=== PATIENT | female | born 1945 | race Caucasian/White ===

== ENCOUNTER 2016-08-28 17:50 | Inpatient (IN) ==
[2016-08-28] MEDS ORDERED: D5% in Water 1,000 ML IVC PRN (21:14)
[2016-08-28] MEDS ORDERED: Naloxone 0.4 MG/ML INJ IVP PRN (21:14)
[2016-08-28] MEDS ORDERED: *HR* Dextrose 50 % in Water (Syg) 50 ML SYRINGE IVP PRN (21:14)
[2016-08-28] MEDS ORDERED: Acetaminophen 325 MG TABLET PO PRN (21:14)
[2016-08-28] MEDS ORDERED: Dextrose Gel 15 GM PO PRN ×2 (21:14)
[2016-08-28] MEDS ORDERED: 0.9 % Sodium Chloride 1,000 ML IVC SCH (21:15)
[2016-08-28] MEDS ORDERED: *HR* Heparin 5,000 UNIT/ML VIAL SQ SCH (22:00)
--- NOTE | 2016-08-28 22:07 | Internal Med History&Physical ---
<Katharina Dash - Last Filed: 08/28/16 23:25> Date of Encounter: 08/28/16 Time of Encounter: 21:49 Assessment and Plan (1) Severe sepsis Current visit: Yes Status: Acute possible etiology recent hospitalization, UTI tachycardia Pulse 122 RR >20 with suspected end organ damage, acute encephalopathy and Cr 2.62, without previously recorded comparison suspected UTI start empiric abx LA 2.3, slight elevation will repeat IVF (2) GABRIELA (acute kidney injury) Current visit: Yes Status: Acute Cr 2.62, without previous comparison IVF (3) Acute encephalopathy Current visit: Yes Status: Acute etiology:infectious with end organ involvement, dehydration head CT - EKG sinus tachycardia 94% O2 saturation UA:trace LE, WBC, bacteria Na 132, K 5.8 osm:279 Ca 8.3 glucose 153 TSH .779 check ammonia UDS (4) UTI (urinary tract infection) Current visit: Yes Status: Suspected suspected UA;+LE, bacteria and WBC urine ctx start abx Qualifiers: Urinary tract infection type: acute cystitis Hematuria presence: without hematuria Qualified Code(s): N30.00 - Acute cystitis without hematuria (5) Hypocalcemia Current visit: Yes Status: Acute 8.3, will supplement and rechck (6) Elevated troponin I level Current visit: No Status: Acute .21 will trend (7) Hyperkalemia Current visit: No Status: Acute given kayexylate will recheck (8) Diabetes Current visit: Yes Status: Acute sliding scale diabetic diet Qualifiers: Diabetes mellitus type: other specified (including CAMMY) Diabetes mellitus complication status: with neurologic complications Diabetes mellitus complication detail: with autonomic neuropathy Diabetes mellitus termite control servicer insulin use: unspecified half-way insulin use status Qualified Code(s): E13.43 - 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 (9) HTN (hypertension) Current visit: Yes Status: Acute bp 117/72 continue home meds Qualifiers: Hypertension type: essential hypertension Qualified Code(s): I10 - Essential (primary) hypertension (10) Depression Current visit: Yes Status: Acute Qualifiers: Depression Type: unspecified Qualified Code(s): F32.9 - Major depressive disorder, single episode, unspecified (11) Syncope Current visit: Yes Status: Acute found down at home for uncertain amount of time possibly polypharmacy, vs cardiac vs infectious cause hold home percocet and klonipin ECHO EKGtachy NSR Qualifiers: Syncope type: unspecified Qualified Code(s): R55 - Syncope and collapse Internal Medicine - H&P: HPI Chief complaint: AMS Admitted From: Home Plans for Post Hospital Care: Home History of present illness: Ms. Monson is a 71 year old female with c/o altered mental status and altered breathing early this morning after she woke up. PMHx HTN, HLD,depression, TIA, DM, chronic back pain. pt in room with niece at bedside. Pt states she had some trouble breathing and does not remember much from this morning. Niece states that pt was confused and disoriented this morning with some depressed breathing. SHe was found down on ground, unwitnessed fall or trauma to head. At that time daughter called EMS. Pt received narcan became awake and alert with improved respiration. When niece arrived at ER, pt seemed awake and alert but was not at her normal baseline mental status. Niece states pt has been more depressed lately due to daughter's cancer diagnosis and has some on and off confusion with some noticeable weightloss since July. Niece states she was recently in hospital in [place] for similar episode in July but unsure which hospital or what was done at that time. pt was evaluated at [facility]. NSR tachycardia on EKG, elevated troponin of .21. Pt denies headache, change in vision or hearing, chest pain, hemoptysis, SOB, wheeze, abd pain, N/V/D/C, dysuria other urinary changes,numbness/tingling. Past Med Surg Social Fam HX - Past Medical History Medical history: diabetes, hyperlipidemia, hypertension, TIA Psychiatric history: anxiety, depression - Social History Smoking Status: Never smoker Smokeless Tobacco Status: No Alcohol use: none Drug use: none Occupational status: retired Current living situation: Home, With Family - Family History Daughter Race: Living Status: Still Living Hx Family Cancer: Yes - Additional Family History Additional family history: pt has one daughter who from cancer, second daughter recently also diagnosed with cancer Internal Medicine - H&P: Meds Albuterol Sulfate [Albuterol Inhaler] 2 puff IH Q6H 08/28/16 [History] ClonazePAM [Klonopin] 1 mg PO BID 08/28/16 [History] GlipiZIDE [Glipizide Xl] 5 mg PO DAILY 08/28/16 [History] Lisinopril-HCTZ 10-12.5 [Prinzide 10-12.5] 2 each PO DAILY 08/28/16 [History] Metformin HCl [Metformin HCl ER] 2,000 mg PO HS 08/28/16 [History] Metoprolol Succinate 100 mg PO DAILY 08/28/16 [History] Omeprazole [PriLOSEC] 40 mg PO DAILY 08/28/16 [History] OxyCODONE/APAP 5/325 [Percocet 5/325 MG] 1 each PO Q4HR PRN 08/28/16 [History] Potassium Chloride [K-Tab ER] 40 meq PO BID 08/28/16 [History] Simvastatin [Zocor] 40 mg PO HS 08/28/16 [History] Allergies guaifenesin [From Mucinex] Allergy (Verified 10/05/15 18:49) Difficulty Breathing gabapentin [From Neurontin] Adverse Reaction (Verified 10/05/15 18:49) See Comments pregabalin [From Lyrica] Adverse Reaction (Verified 10/05/15 18:49) See Comments promethazine [From Phenergan] Adverse Reaction (Verified 10/05/15 18:49) Vomiting All Systems PM: A 10-system review of systems was performed and is negative for pertinent findings except as documented above in the HPI. - Constitutional Constitutional: falls, weight loss, no chills, no fatigue, no weakness - EENT Eyes: no change in vision, no discharge, no pain, no photophobia Ears: decreased hearing Nose, mouth and throat: no dysphagia, no nasal discharge, no neck pain, no sore throat - Cardiovascular Cardiovascular ROS IM: no chest pain, no diaphoresis, no dyspnea, no lightheadedness, no palpitations, no syncope - Respiratory Respiratory: no cough, no dyspnea, no wheezing, no excessive phlegm production - Gastrointestinal Gastrointestinal: no abdominal pain, no diarrhea, no hematemesis, no hematochezia, no melena, no nausea, no vomiting - Genitourinary Genitourinary: no change in urinary stream, no dysuria, no flank pain, no hematuria - Musculoskeletal Musculoskeletal ROS IM: no numbness, no tingling - Integumentary Integumentary IM: no rash, no unusual bruising - Neurological Neurological ROS: confusion, frequent falls, memory loss, no abnormal hearing, no abnormal speech, no headache(s), no loss of vision, no numbness, no tingling - Psychiatric Psychiatric: confusion, depression - Constitutional Vitals: Temp Pulse BP Pulse Ox 99.3 F 116 117/72 94 L 08/28/16 19:59 08/28/16 19:59 08/28/16 19:59 08/28/16 19:59 General appearance: Present: disheveled, A&O X 2, no acute distress - Head Head exam: Present: atraumatic, normocephalic - Eye Eye exam: Present: PERRL, conjuntiva pink, sclera anicteric Pupils: Present: PERRL - Neck Neck exam general surgery: Present: supple, trachea midline. Absent: lymphadenopathy - Respiratory Respiratory exam: Present: CTAB. Absent: accessory muscle use, rales, rhonchi, wheezes - Cardiovascular Cardiovascular exam: Present: RRR, +S1, +S2. Absent: diastolic murmur, gallop, rubs, systolic murmur - GI/Abdominal GI/Abdominal exam: Present: normal bowel sounds, soft, no peritoneal signs. Absent: distended, tenderness - Extremities Exam Extremities exam: Present: warm, radial pulses palpable and symetrical. Absent : calf tenderness, cyanotic, pedal edema - Neurological Exam Neurological exam: Present: CN II-XII intact, oriented X3, no focal deficits, strengths equal and symetr throughout. Absent: pronater drift, facial droop, speech deficit - Expanded Neurological Exam Neurological exam expanded: Present: inattentive, memory loss-recent event Cranial Nerves: EOM's intact PM: Normal, nystagmus PM: Normal, tongue deviation PM: Normal Sensory exam: lower extremity light touch: Normal, lower extremity pin prick: Normal, upper extremity light touch: Normal, upper extremity pin prick: Normal Coma Scale Eye Opening: Spontaneous Coma Scale Motor Response: Obeys Commands Coma Scale Verbal Response: Oriented Coma Scale Total: 15 - Skin Skin exam: Present: dry, intact, normal color. Absent: cyanosis, diaphoretic Internal Med - H&P Results - Labs CBC & Chem 7: 08/28/16 22:12 <Buster Pemberton - Last Filed: 08/29/16 05:12> Date of Encounter: 08/28/16 Internal Medicine - H&P: HPI History of present illness: Ms. Monson is a 71 year old female All Systems PM: A 10-system review of systems was performed and is negative for pertinent findings except as documented above in the HPI. - Constitutional Vitals: Temp Pulse Resp BP Pulse Ox 99 F 114 16 121/65 97 08/29/16 00:30 08/29/16 00:30 08/29/16 00:30 08/29/16 00:30 08/29/16 00:30 Internal Med - H&P Results - Labs CBC & Chem 7: 08/29/16 01:03 08/29/16 01:03 Labs: Short CBC 08/29/16 Range/Units 01:03 WBC 9.0 (4.3-11.1) K/mcL Hgb 12.1 (11.5-15.4) g/dL Hct 36.7 (35.3-44.9) % Plt Count 201 (140-400) K/mcL BMP 08/28/16 08/29/16 22:12 01:03 Sodium 133 L 134 L Potassium 5.6 H 4.9 H Chloride 99 99 Carbon Dioxide 23 27 BUN 18 18 Creatinine 2.18 H 2.10 H Glucose 130 H 136 H Calcium 8.1 L 8.0 L Cardiac Enzymes 08/28/16 08/29/16 Range/Units 22:12 01:03 Troponin I 0.37 H* 0.50 H* (0-0.03) ng/mL Liver Function 08/29/16 Range/Units 01:03 Total Bilirubin 0.5 (0.2-1.2) mg/dL AST 13 (5-34) Units/L ALT 7 (0-55) Units/L Alkaline Phosphatase 57 (38-126) Units/L Albumin 3.3 L (3.5-5.0) g/dL - Attending Attestation I examined this patient and my medical decision-making was reviewed with the PHYSICAL SCIENCES INSTRUCTOR/PA/Advanced Practice Nurse/Resident Physician. I agree with the documented findings, disposition and treatment plan as described except to the extent set forth below. Agree with Dr. Dash. Syncope and evaluation. Etiology unclear. Mild troponin elevation, uptrending. Will start heparin drip and consult cardiology Abnormal urinalysis, chest x-ray suspicious for atelectasis versus pneumonitis. Continue with IV antibiotics. Follow cultures. Unclear if acute kidney injury or chronic kidney disease. Obtain a renal sonogram. Avoid nephrotoxic agents. Lactic acid trending down. Potassium improved after Kayexalate.
[2016-08-28 23:19] LABS: Calcium 8.1 mg/dL (8.6-10.8)
[2016-08-28 23:20] LABS: Potassium 5.6 mEq/L (3.5-4.5)
[2016-08-28 23:21] LABS: Hemoglobin A1C 5.1 %
[2016-08-29] MEDS ORDERED: 0.9 % Sodium Chloride 1,000 ML IVC SCH (00:10)
[2016-08-29] MEDS: Insulin LISPRO 300 UNITS/3 ML VIAL SQ SCH ×6 (00:25→22:59)
[2016-08-29] MEDS ORDERED: Levofloxacin 500 MG/100 ML 500 MG/100 ML BAG IVPB SCH (01:00)
[2016-08-29 01:21] LABS: Hematocrit 36.7 % (35.3-44.9); Hemoglobin 12.1 g/dL (11.5-15.4); Mean Corpuscular Hemoglobin 28.3 pg (28.0-33.3); Mean Corpuscular Volume 85.7 fL (83.0-100.0); Mean Platelet Volume 10.9 fL (9.4-12.4); Platelet Count 201 K/mcL (140-400); Red Blood Count 4.28 M/mcL (3.82-4.97); Red Cell Distribution Width 13.8 % (11.5-14.5)
[2016-08-29 01:31] LABS: INR 1.2; Prothrombin Time 13.2 Seconds (9.4-12.1)
[2016-08-29 01:33] LABS: Activated Partial Thrombo Time 29.1 Seconds (26.0-36.0)
[2016-08-29 01:37] LABS: Albumin 3.3 g/dL (3.5-5.0); Albumin/Globulin Ratio 1.3 (1.1-2.2); Bilirubin,Total 0.5 mg/dL (0.2-1.2); Globulin 2.6 g/dL (2.4-3.5); Magnesium 1.3 mg/dL (1.6-2.6); Potassium 4.9 mEq/L (3.5-4.5); Total Protein 5.9 g/dL (6.0-8.3)
[2016-08-29] MEDS ORDERED: Aspirin 325 MG TABLET PO ONE (02:05)
[2016-08-29] MEDS ORDERED: *HR* Morphine 2 MG/ML SYRINGE IVP PRN (02:06)
[2016-08-29] MEDS ORDERED: Nitroglycerin 0.4 MG TAB.SUBL SL PRN (02:06)
[2016-08-29] MEDS ORDERED: Magnesium Sulfate 1 GM in D5% in Water 100 ML IVPB ONE (02:09)
[2016-08-29] MEDS ORDERED: Calcium Chloride 1,000 MG in 0.9 % Sodium Chloride 100 ML IVPB ONE (02:11)
[2016-08-29] MEDS ORDERED: Magnesium Sulfate 2 GM in D5% in Water 100 ML IVPB ONE ×2 (05:04→09:00)
[2016-08-29] MEDS ORDERED: *HR* Heparin 5,000 UNIT/ML VIAL IVP PRN ×2 (05:12)
[2016-08-29] MEDS ORDERED: *HR* Heparin 5,000 UNIT/ML VIAL IVP ONE (05:12)
[2016-08-29] MEDS ORDERED: Heparin 25,000 UNIT/500 ML D5W 25,000 UNIT/500 ML MLS IVC SCH (05:15)
[2016-08-29] MEDS ORDERED: Piperacillin/Tazobactam 3.375 GM in D5% in Water (Mini-Bag+) 100 ML IVPB SCH (06:00)
[2016-08-29] MEDS: Magnesium Oxide 400 MG TABLET PO SCH ×2 (08:38→20:42)
--- NOTE | 2016-08-29 10:45 | ECHO - Doppler Report ---
Echocardiogram Name: Sydney Monson Date of Study: 08/29/2016 Date: 1945 Ht: 61.0 in Medical Record#: [id number] Age: 71 Wt: 169.0 lb Gender: Female BSA: 1.76 Order #: [id number] Location: [facility] Room #: 2A22 Reading Physician: Paul Ordonez MD, [facility] Slide Forming Machine Operator: Mellissa Srinivasan RDCS, RVT Ordering Physician: Gilbert Keen MD Primary Physician: Katharina Dash DO Indications: Elevated Troponins Impressions: Normal LV systolic function, LVEF 70-75%. Mild left ventricular diastolic dysfunction. Mildly dilated right ventricle. There is hypokinesis of the mid-apical right ventricle. No significant valvular dysfunction. No evidence of pulmonary hypertension. Primary hospitalist has been paged to discuss the abnormal results. Left Ventricular Wall Motion: Rest Echo Findings All wall segments showed normal motion. Findings: Study Quality * Technically adequate exam. ECG Findings * Sinus tachycardia. Left Ventricle * Normal LV systolic function, LVEF 70-75%. * Normal LV chamber size and wall thickness. * Mild left ventricular diastolic dysfunction. Right Ventricle * Mildly dilated right ventricle. There is hypokinesis of the mid-apical right ventricle. Left Atrium * Normal left atrial size. Right Atrium * Normal right atrial size. Aorta * Normally sized aortic root. Pericardium * There is a trivial pericardial effusion present. IVC * Normal IVC dimensions and inspiratory collapse. Aortic Valve * Trileaflet aortic valve. * No aortic stenosis. * No aortic regurgitation. Mitral Valve * Normal mitral valve structure. * No mitral stenosis. * Trace mitral regurgitation. Tricuspid Valve * Normal tricuspid valve structure. * No tricuspid stenosis. * Trace tricuspid regurgitation. * No evidence of pulmonary hypertension. Pulmonic Valve * Normal pulmonic valve structure. * No pulmonic stenosis. * Trace pulmonic regurgitation. History Hypertension Diabetes Hypercholesteremia Family History of CAD Measurements: BP: 135/ 78 2D Normal Values RVIDd: 4.70 cm IVSd: .80 cm 0.6 - 1.0 cm LVIDd: 4.70 cm 3.7 - 5.6 cm LVPWd: .80 cm 0.6 - 1.1 cm LVIDs: 2.90 cm 1.5 - 3.6 cm AO: 3.30 cm < 4.0 cm %FS: 38.30 cm >25 % LA volume: 56 Mitral Valve Peak E:.52 m/sec Peak A:.98 m/sec E/A Ratio:0.5 Tricuspid Valve TV Regurg Peak Grad: 24.00mmHg TV Regurg Peak Saad: 2.43m/sec Updated by Paul Ordonez MD, [facility] on 08/29/2016 10:38:27 AM electronically signed on 08/29/2016 10:38:53 AM with status of Final Wall Motion Leon: 1=Normal, 2=Hypokinesis, 3=Akinesis, 4=Dyskinesis, 5=Aneurysmal, 6=Hyperkinetic, X=Not Visualized (Blank)=Missing
[2016-08-29] MEDS ORDERED: Albuterol 2.5 MG/3 ML NEBULIZER IH PRN (10:46)
--- NOTE | 2016-08-29 10:50 | Cardiology Consult Note ---
<Carol Ann Alvarez - Last Filed: 08/29/16 11:40> Date of Encounter: 08/28/16 Time of Encounter: 10:30 Assessment and Plan (1) Syncope Current Visit: Yes Status: Acute Per cardiology: -Syncope at home with unknown down time. Per reports was found by family and EMS called. Patient responded to narcan. Urine positive for opiates and benzodiazepines. Narcotics may have contributed to syncope. -Patient states this has happened 3 times over the past several months. She denies prior work up for syncope, however per review of records family reported recent hospital admission for syncope in [place]. -Patient tachycardia on admission. -Unclear etiology for syncope. -ECG with sinus tachycardia. -Telemetry reviewed with no significant events noted. -No cartid bruit appreciated. -Can consider holter monitor at discharge to rule out cardiac arrhythmias as cause for syncope. -Will check orthostatic BPs. -Can consider neurology consult. -Can consider carotid duplex if deemed clinically warranted. Qualifiers: Syncope type: unspecified Qualified Code(s): R55 - Syncope and collapse (2) UTI (urinary tract infection) Current Visit: Yes Status: Suspected Per cardiology: -Suspected UTI. -Positive WBC and leukocyte esterase. -Urine culture pending. -On ATB. -Management per primary service. Qualifiers: Urinary tract infection type: acute cystitis Hematuria presence: without hematuria Qualified Code(s): N30.00 - Acute cystitis without hematuria (3) Severe sepsis Current Visit: Yes Status: Acute Per cardiology: -Meets sepsis criteria with tachycardia, and tachypnea. -On ATB. -Urine culture pending. Suspected UTI. -Had recent hospitalization in [place]. -Management per primary service. (4) GABRIELA (acute kidney injury) Current Visit: Yes Status: Acute Per cardiology: -Creatinine this admission 2.62. -Previous records reviewed with creatiine 0.8 in May 2013. Of note patient did have creatiine of 4.51 January of 2008. -May be contributing to elevated troponins. -Management per primary service. -Can consider nephrology consult. (5) Elevated troponin I level Current Visit: No Status: Acute Per cardiology: -ELevated troponins in the setting of UTI, sepsis, and GABRIELA. -Troponins 0.21, 0.37, and 0.5. -Echocardiogram pending. -Denies history of CAD. -Denies chest pain, heaviness, or tightness. -ECG with sinus tacchycardia, HR 121 with t wave inversions V3, V4, and V5. Repeat ECG ordered per primary service. -Currently on heparin drip. -Will repeat troponin. -Will add asa, beta wei, and statin. Of note, was just started on home beta wei dose per primary service. -Further recommendations pending repeat troponin, ECG, and echo. -Will continue to monitor. (6) Hyperkalemia Current Visit: No Status: Acute Per cardiology: -K at [place] 5.8 in the setting of GABRIELA. -Was given kayexelate. -K 08/29 4.9. -Management per primary service, (7) Hypomagnesemia Current Visit: Yes Status: Acute Per cardiology: -Mg 1.3. -Replaced per primary service. -Management per primary service. Discussion w patient/family: The assessment and plan as outlined above was discussed with the patient who expressed understanding and agreement. All questions were answered. Thank you for involving us in the care of your patient. Please call with any questions. Discussed and reviewed with . History of Present Illness Consult date: 08/29/16 Requesting physician: Buster Pemberton Consult reason: elevated troponin, syncope, hyperkalemia Chief complaint: syncope History of present illness: Ms. Monson is a 71 year old female with a relevant past medical history of DM, hyperlipidemia, HTN, TIA, anxiety, and depression. Patient states she was at home when she passed out and fell. Per records it appears that she was unresponsive and EMS was called. She was given narcan and became more arrousable. Patient was taken to [place] ER and subsequently transferred to [place]. Patient is somewhat of a poor historian. Patient states over the past several months she has "passes out" 3 times. Patient states she has not been evaluated for this until now. Patient reports increased shortness of breath recently and increased fatigue. Patient denies chest pain, chest heaviness, or tightness. Patient denies previous cardiac history. Patient states she has never had a cardiac catheterization before. Patient states she does not ever remember being told she has kidney issues. Cardiology was consulted for elevated troponin. (LUIS FELIPE) Past Med Surg Social Fam HX - Past Medical History Attestation: Yes The following information was validated with the patient. Source: patient, old records reviewed Medical history: diabetes, hyperlipidemia, hypertension, TIA Psychiatric history: anxiety, depression - Social History Smoking Status: Never smoker Smokeless Tobacco Status: No Alcohol use: none Drug use: none - Family History Daughter Race: Living Status: Still Living Hx Family Cancer: Yes Medications and Allergies Albuterol Sulfate [Albuterol Inhaler] 2 puff IH Q6H 08/28/16 [History] ClonazePAM [Klonopin] 1 mg PO BID 08/28/16 [History] GlipiZIDE [Glipizide Xl] 5 mg PO DAILY 08/28/16 [History] Metformin HCl [Metformin HCl ER] 2,000 mg PO HS 08/28/16 [History] Metoprolol Succinate 100 mg PO DAILY 08/28/16 [History] Omeprazole [PriLOSEC] 40 mg PO DAILY 08/28/16 [History] OxyCODONE/APAP 5/325 [Percocet 5/325 MG] 1 each PO Q4HR PRN 08/28/16 [History] Potassium Chloride [K-Tab ER] 40 meq PO BID 08/28/16 [History] Simvastatin [Zocor] 40 mg PO HS 08/28/16 [History] Duloxetine HCl [Cymbalta] 60 mg PO DAILY 08/29/16 [History] Lisinopril/Hydrochlorothiazide [Zestoretic 20-25 mg Tablet] 1 each PO DAILY [History] Allergies guaifenesin [From Mucinex] Allergy (Verified 10/05/15 18:49) Difficulty Breathing gabapentin [From Neurontin] Adverse Reaction (Verified 10/05/15 18:49) See Comments pregabalin [From Lyrica] Adverse Reaction (Verified 10/05/15 18:49) See Comments promethazine [From Phenergan] Adverse Reaction (Verified 10/05/15 18:49) Vomiting All Systems Review: A 10-system review of systems was performed and is negative for pertinent findings except as documented above in the HPI. - Constitutional Constitutional: fatigue - Cardiovascular Cardiovascular: as per HPI, dyspnea on exertion, syncope Physical Examination Vital Signs, Last 4 Hours Temp Pulse Resp BP Pulse Ox 08/29/16 07:23 98.2 F 106 18 135/78 95 General: Conversant, No Apparent Distress HEENT: Atraumatic, Normocephaly, Mucus Membranes Moist Neck: No JVD, Normal carotid pulses Cardiac: Reg Rate and Rhythm, Normal S1 and S2, No Murmur Lungs: Normal Breath Sounds, No Wheeze, Rales, Rhonchi Neuro: Alert and responsive, No focal deficits noted Abdomen: Soft, Non-Tender Skin: No rashes noted on visualized skin Musculoskeletal: No Chest Wall Tenderness Extremities: No Clubbing, No Cyanosis, No Edema, Normal Pulses Results 08/29/16 01:03 08/29/16 01:03 Lab Results Impressions Retroperitoneum Ultrasound 08/29/16 09:00 IMPRESSION: No hydronephrosis. Incidental note of increased echogenicity of the liver. D/ / Roz Baldwin MD / Roz Baldwin MD Interpreting Provider: Roz Baldwin MD Active Medications Acetaminophen (Tylenol) 650 mg PO Q6HR PRN PRN Reason: Mild Pain (1-3) Stop: 02/27/17 21:15 Albuterol Sulfate (Proventil Neb) 2.5 mg IH [id number] PRN; Protocol PRN Reason: Shortness Of Breath/Wheezing Stop: 02/28/17 10:47 Dextrose/Water (Dextrose 50% (Syg)) 25 ml IVP AD PRN PRN Reason: Hypoglycemia Stop: 02/27/17 21:15 Glucagon (Glucagen) 1 mg IM ONCE PRN PRN Reason: Hypoglycemia Stop: 02/27/17 21:15 Glucose (Gluctose) 15 gm PO ONCE PRN PRN Reason: Hypoglycemia Stop: 02/27/17 21:15 Glucose (Gluctose) 30 gm PO ONCE PRN PRN Reason: Hypoglycemia Stop: 02/27/17 21:15 Heparin Sodium (Porcine) (Heparin) 4,000 unit IVP Q6HR PRN PRN Reason: SEE COMMENTS Stop: 02/28/17 05:13 Heparin Sodium (Porcine) (Heparin) 2,000 unit IVP Q6H PRN PRN Reason: SEE COMMENTS Stop: 02/28/17 05:13 Dextrose (Dextrose 5%) 1,000 mls @ 100 mls/hr IVC .Q10H PRN PRN Reason: HYPOGLYCEMIA Stop: 02/27/17 21:15 Sodium Chloride (0.9 % Sodium Chloride) 1,000 mls @ 150 mls/hr IVC .Q6H40M HAYDEN Stop: 02/28/17 00:10 Last Admin: 08/29/16 00:41 Dose: 150 mls/hr Heparin Sodium/Dextrose (Heparin 25,000 Unit/500 Ml D5w) 25,000 unit in 500 mls @ 18.408 mls/hr IVC .Q24H HAYDEN; 12 UNIT/KG/HR PRN Reason: Protocol Stop: 02/28/17 05:16 Last Admin: 08/29/16 06:33 Dose: 12 unit/kg/hr, 18.408 mls/hr Ceftriaxone Sodium 2,000 mg/ (Dextrose) 100 mls @ 200 mls/hr IVPB Q24H [facility] Stop: 02/28/17 16:01 Insulin Human Lispro (Humalog) 0 units SQ TIDAC [facility] PRN Reason: Protocol Stop: 02/28/17 11:31 Insulin Human Lispro (Humalog) 0 units SQ HS [facility] PRN Reason: Protocol Stop: 02/28/17 21:01 Magnesium Oxide (Mag-Ox) 400 mg PO BID [facility] PRN Reason: Protocol Stop: 02/28/17 09:01 Last Admin: 08/29/16 08:38 Dose: 400 mg Morphine Sulfate (Morphine Sulfate) 1 mg IVP Q6HR PRN PRN Reason: Chest Pain Stop: 02/28/17 02:07 Naloxone HCl (Narcan) 0.4 mg IVP Q2MIN PRN PRN Reason: Opioid Reversal Stop: 02/27/17 21:15 Nitroglycerin (Nitroglycerin) 0.4 mg SL Q5MIN PRN PRN Reason: Chest Pain Stop: 02/28/17 02:07 Omeprazole (Prilosec) 40 mg PO DAILY@0730 [facility] PRN Reason: Protocol Stop: 03/01/17 07:31 Laboratory Tests 08/28/16 16:10 Urine Opiates Screen Positive H Ur Oxycodone Screen Positive H U Benzodiazepines Scrn Positive H Laboratory Tests 08/28/16 08/28/16 08/28/16 15:38 15:38 22:12 Hgb Potassium 5.8 H 5.6 H Creatinine 2.62 H 2.18 H Magnesium Troponin I 0.21 H* 08/28/16 08/29/16 08/29/16 22:12 01:03 01:03 Hgb 12.1 Potassium Creatinine Magnesium Troponin I 0.37 H* 0.50 H* 08/29/16 01:03 Hgb Potassium 4.9 H Creatinine 2.10 H Magnesium 1.3 L Troponin I - Imaging and Cardiology Chest Xray: report reviewed Echo: pending Other Results: CT head report reviewed - EKG Interpretation EKG results cardiology: personally reviewed (ECG with sinus tachycardia. HR 121 , T wave inversion in leads V3, V4, and V5.), other (Telemetry reviewed with average HR 114, sinus tachycardia. Rare PVCs noted.) Consult Discharge Plan - Plan Referrals: Gilbert Keen [Primary Care Provider] - 09/08/16 1:20 pm (please follow up as schedule...) <Gabrielle Pozo - Last Filed: 08/29/16 14:21> Date of Encounter: 08/28/16 Assessment and Plan Discussion w patient/family: The assessment and plan as outlined above was discussed with the patient and/or family members who expressed understanding and agreement. All questions were answered. Thank you for involving us in the care of your patient. Please call with any questions. History of Present Illness History of present illness: Ms. Monson is a 71 year old female All Systems Review: A 10-system review of systems was performed and is negative for pertinent findings except as documented above in the HPI. Physical Examination Vital Signs, Last 4 Hours Temp Pulse Resp BP Pulse Ox 08/29/16 11:38 98.0 F 97 16 143/69 89 Results 08/29/16 01:03 08/29/16 01:03 Lab Results 08/28/16 08/28/16 08/29/16 22:12 22:12 01:03 WBC Hgb Hct Plt Count INR APTT Sodium 133 L Potassium 5.6 H Chloride 99 Carbon Dioxide 23 BUN 18 Creatinine 2.18 H Glucose 130 H Calcium 8.1 L Magnesium Total Bilirubin AST ALT Alkaline Phosphatase Troponin I 0.37 H* 0.50 H* 08/29/16 08/29/16 08/29/16 01:03 01:03 01:03 WBC 9.0 Hgb 12.1 Hct 36.7 Plt Count 201 INR 1.2 APTT 29.1 Sodium 134 L Potassium 4.9 H Chloride 99 Carbon Dioxide 27 BUN 18 Creatinine 2.10 H Glucose 136 H Calcium 8.0 L Magnesium 1.3 L Total Bilirubin 0.5 AST 13 ALT 7 Alkaline Phosphatase 57 Troponin I 08/29/16 08/29/16 08/29/16 10:21 12:08 13:21 WBC Hgb Hct Plt Count INR APTT 65.5 H D Sodium Potassium Chloride Carbon Dioxide BUN Creatinine Glucose Calcium Magnesium Total Bilirubin AST ALT Alkaline Phosphatase Troponin I 0.41 H* 0.43 H* - Attending Attestation I examined this patient and my medical decision-making was reviewed with the THEATRICAL DRESSER/PA/Advanced Practice Nurse/Resident Physician. I agree with the documented findings, disposition and treatment plan. Ms. Monson was found down at home and after EMS arrived she revived with narcan. She admits to some confusion at home and does take pain medications. She also does not hydrate well, drinking mainly diet pepsi. I suspect she became possibly dehydrated, developed a UTI and became confused. On top of this , she may have taken more pain medication than she remembers. Nevertheless, she denies having chest pain. There are no concerning telemetry findings. There are no acute ECG findings although there are nonspecific ST abnormalities that are different when compared to prior ECG in 2013 which is not diagnostic. The echo demonstrated preserved LVEF. She does have mild RV dilation and mid RV hypokinesis on echo which is of unclear significance. She is requiring oxygen and has sinus tachycardia. I agree with venous scan of lower extremities. She is otherwise in no acute distress. Would recommend against an invasive evaluation given renal dysfunction and no clear indication of an acute coronary syndrome. No further testing from a cardiac standpoint. Aspirin, BB and statin were restarted. We will sign off. Please call with questions.
[2016-08-29] MEDS: Metoprolol XL (24 HR) Succ 50 MG TAB.ER.24H PO SCH (11:55)
[2016-08-29] MEDS: 0.9 % Sodium Chloride 1,000 ML IVC SCH ×2 (11:55→22:57)
--- NOTE | 2016-08-29 16:13 | Internal Med Progress Note ---
Date of Encounter: 08/29/16 Time of Encounter: 16:11 - Assessment and plan (1) Syncope Current Visit: Yes Status: Acute Assessment and plan: unclear etiology. in the setting of syncope with elevated trop, isolated Rv dilatation and hypokinesis on the ECHO, will need to r/o PE> V/Q shows low prob, patinet is tachycardic and is requiring 2 l of NC, however does not have chest pain or sob. atthis time, will follow venous doppler of b/l lower legs if no DVT, will stop the heparin drip. may also be 2/2 polypharmacy / opioid overdose as she was brought back with narcan as per [facility] chart. cardio was consulted, as per cardio ,the trop elevation 2/2 GABRIELA and RV changes of unclear significance at this time and will not do any further invasive testing. BP stable, EKG with no ischemic changes. Qualifiers: Syncope type: unspecified Qualified Code(s): R55 - Syncope and collapse (2) Elevated troponin I level Current Visit: No Status: Acute Assessment and plan: in the setting of GABRIELA and possible UTI. No ischemic changes on the EKG. Will rule out PE (3) UTI (urinary tract infection) Current Visit: Yes Status: Suspected Assessment and plan: Has no leukocytosis or fever. Hemodynamically stable. Does not complain of urinary symptoms at this time. We will follow urine cultures and de-escalate antibiotics. Qualifiers: Urinary tract infection type: acute cystitis Hematuria presence: without hematuria Qualified Code(s): N30.00 - Acute cystitis without hematuria (4) Diabetes Current Visit: Yes Status: Acute Qualifiers: Diabetes mellitus type: other specified (including CAMMY) Diabetes mellitus complication status: with neurologic complications Diabetes mellitus complication detail: with autonomic neuropathy Diabetes mellitus group home insulin use: unspecified remote computer terminal operator insulin use status Qualified Code(s): E13.43 - 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 (5) HTN (hypertension) Current Visit: Yes Status: Acute Qualifiers: Hypertension type: essential hypertension Qualified Code(s): I10 - Essential (primary) hypertension (6) GABRIELA (acute kidney injury) Current Visit: Yes Status: Acute Assessment and plan: mild imporvement in renal fxn. she is not aware of CKD in the past. will order renal US. I/O charting. - Time Spent With Patient 25 - 35 minutes - Subjective Interval history: ramakrishna seen at the bedside, she denies any chest pain, sob, dizziness, cough, leg swelling or pain. as per the chart, she presented with syncope however she says she fell and did not pass out. has h/o recurrent falls/ - Constitutional Vitals: Temp Pulse Resp BP Pulse Ox 98.0 F 97 16 143/69 89 08/29/16 11:38 08/29/16 11:38 08/29/16 11:38 08/29/16 11:38 08/29/16 11:38 General appearance: Present: disheveled, A&O X 2, no acute distress Exam: neck- supple chest- b/l clear, no added sounds CVS-s1 and s2, regular , tachycardic, abd-soft, non tender, bs are present ext- no calf tenderness, no edema Internal Medicine: Result - Labs CBC & Chem 7: 08/29/16 01:03 08/29/16 01:03 Labs: Short CBC 08/29/16 Range/Units 01:03 WBC 9.0 (4.3-11.1) K/mcL Hgb 12.1 (11.5-15.4) g/dL Hct 36.7 (35.3-44.9) % Plt Count 201 (140-400) K/mcL BMP 08/28/16 08/29/16 22:12 01:03 Sodium 133 L 134 L Potassium 5.6 H 4.9 H Chloride 99 99 Carbon Dioxide 23 27 BUN 18 18 Creatinine 2.18 H 2.10 H Glucose 130 H 136 H Calcium 8.1 L 8.0 L Cardiac Enzymes 08/28/16 08/29/16 08/29/16 Range/Units 22:12 01:03 10:21 Troponin I 0.37 H* 0.50 H* 0.41 H* (0-0.03) ng/mL 08/29/16 Range/Units 12:08 Troponin I 0.43 H* (0-0.03) ng/mL Liver Function 08/29/16 Range/Units 01:03 Total Bilirubin 0.5 (0.2-1.2) mg/dL AST 13 (5-34) Units/L ALT 7 (0-55) Units/L Alkaline Phosphatase 57 (38-126) Units/L Albumin 3.3 L (3.5-5.0) g/dL - ABG Interpretation ABG results: PT/INR, D-dimer PT 13.2 Seconds (9.4-12.1) H 08/29/16 01:03 - Impressions Impressions Retroperitoneum Ultrasound 08/29/16 09:00 IMPRESSION: No hydronephrosis. Incidental note of increased echogenicity of the liver. D/ / Roz Baldwin MD / Roz Baldwin MD Interpreting Provider: Roz Baldwin MD Pulmonary Perfusion Imaging 08/29/16 11:11 IMPRESSION: Low probability for pulmonary embolus. D/ / 08/29/2016 13:04:09 Dio Meyer MD / marija Interpreting Provider: Dio Meyer MD Consult Discharge Plan - Plan Referrals: Gilbert Keen [Primary Care Provider] - 09/08/16 1:20 pm (please follow up as schedule...)
[2016-08-30] MEDS: Magnesium Oxide 400 MG TABLET PO SCH ×2 (07:54→21:11)
[2016-08-30] MEDS: Insulin LISPRO 300 UNITS/3 ML VIAL SQ SCH ×4 (07:54→21:14)
[2016-08-30] MEDS: Aspirin 81 MG TAB.CHEW PO SCH (07:54)
[2016-08-30] MEDS: Metoprolol XL (24 HR) Succ 50 MG TAB.ER.24H PO SCH (07:54)
[2016-08-30] MEDS ORDERED: Levofloxacin 500 MG/100 ML 500 MG/100 ML BAG IVPB SCH (09:00)
[2016-08-30 09:42] LABS: Basophils % 0.3 %; Eosinophils # 0.1 K/mcL (0.0-0.6); Eosinophils % 2.2 %; Hematocrit 34.2 % (35.3-44.9); Hemoglobin 11.1 g/dL (11.5-15.4); Immature Granulocytes % 0.3 % (0-4); Lymphocytes # 1.1 K/mcL (0.6-4.6); Mean Corpuscular HGB Conc 32.5 g/dL (31.6-35.5); Mean Corpuscular Hemoglobin 27.7 pg (28.0-33.3); Mean Corpuscular Volume 85.3 fL (83.0-100.0); Mean Platelet Volume 10.8 fL (9.4-12.4); Monocytes # 0.4 K/mcL (0.0-1.3); Monocytes % 6.1 %; Neutrophils # 4.2 K/mcL (1.6-8.9); Platelet Count 175 K/mcL (140-400); Red Blood Count 4.01 M/mcL (3.82-4.97); Red Cell Distribution Width 13.7 % (11.5-14.5); Segmented Neutrophils % 72.1 %
[2016-08-30 09:52] LABS: Calcium 8.8 mg/dL (8.6-10.8); Potassium 4.3 mEq/L (3.5-4.5)
--- NOTE | 2016-08-30 11:53 | Internal Med Progress Note ---
Date of Encounter: 08/30/16 Time of Encounter: 11:49 - Assessment and plan (1) Syncope Current Visit: Yes Status: Acute Assessment and plan: unclear etiology. in the setting of syncope with elevated trop, isolated Rv dilatation and hypokinesis on the ECHO, was worked up for PE. V/Q shows low prob, b/l doppler is negative for DVT, does not have chest pain or sob. have stopped the heparin drip, less likely PE. may be 2/2 polypharmacy / opioid overdose as she was brought back with narcan as per [facility] chart. cardio was consulted, as per cardio ,the trop elevation 2/2 GABRIELA and RV changes of unclear significance at this time and will not do any further invasive testing. BP stable, EKG with no ischemic changes. will consult PT/OT for any rehab needs, Qualifiers: Syncope type: unspecified Qualified Code(s): R55 - Syncope and collapse (2) Elevated troponin I level Current Visit: No Status: Acute Assessment and plan: in the setting of GABRIELA . No ischemic changes on the EKG. ruled out PE (3) UTI (urinary tract infection) Current Visit: Yes Status: Suspected Assessment and plan: Has no leukocytosis or fever. Hemodynamically stable. Does not complain of urinary symptoms at this time. urine cx done at [place] growing klebsiella and proteus and both is sensitive to ceftriaxone. will continue ceftriaxone for now, will dc on levoflox. Qualifiers: Urinary tract infection type: acute cystitis Hematuria presence: without hematuria Qualified Code(s): N30.00 - Acute cystitis without hematuria (4) Diabetes Current Visit: Yes Status: Acute Qualifiers: Diabetes mellitus type: other specified (including CAMMY) Diabetes mellitus complication status: with neurologic complications Diabetes mellitus complication detail: with autonomic neuropathy Diabetes mellitus terminal clerk insulin use: unspecified terminal clerk insulin use status Qualified Code(s): E13.43 - 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 (5) HTN (hypertension) Current Visit: Yes Status: Acute Assessment and plan: lisinopril - HCTZ was held due to worsening GABRIELA. will start amlodipine as BP is elevated. Qualifiers: Hypertension type: essential hypertension Qualified Code(s): I10 - Essential (primary) hypertension (6) GABRIELA (acute kidney injury) Current Visit: Yes Status: Acute Assessment and plan: imporvement in renal fxn today she is not aware of CKD in the past. renal US does not show any hydronephrosis. I/O charting. - Time Spent With Patient 25 - 35 minutes - Subjective Interval history: ramakrishna seen at the bedside, she denies any chest pain, sob, dizziness, cough, leg swelling or pain. as per the chart, she presented with syncope. seh was worked up for possible PE, V/Q shows low probability , b/l LE dopplers is negative for DVT. has h/o recurrent falls, consulted PT/OT today - Constitutional Vitals: Temp Pulse Resp BP Pulse Ox 98.2 F 69 18 189/82 93 08/30/16 11:21 08/30/16 11:21 08/30/16 11:21 08/30/16 11:21 08/30/16 11:21 General appearance: Present: disheveled, A&O X 2, no acute distress Exam: neck- supple chest- b/l clear, no added sounds CVS-s1 and s2, regular , no m/r/g abd-soft, non tender, bs are present ext- no calf tenderness, no edema Internal Medicine: Result - Labs CBC & Chem 7: 08/30/16 09:05 08/30/16 09:05 Labs: Short CBC 08/30/16 Range/Units 09:05 WBC 5.9 (4.3-11.1) K/mcL Hgb 11.1 L (11.5-15.4) g/dL Hct 34.2 L (35.3-44.9) % Plt Count 175 (140-400) K/mcL Neutrophils # 4.2 (1.6-8.9) K/mcL BMP 08/30/16 09:05 Sodium 132 L Potassium 4.3 Chloride 100 Carbon Dioxide 25 BUN 11 Creatinine 1.34 H Glucose 176 H Calcium 8.8 Cardiac Enzymes 08/29/16 Range/Units 12:08 Troponin I 0.43 H* (0-0.03) ng/mL - ABG Interpretation ABG results: PT/INR, D-dimer PT 13.2 Seconds (9.4-12.1) H 08/29/16 01:03 - Impressions Impressions Pulmonary Perfusion Imaging 08/29/16 11:11 IMPRESSION: Low probability for pulmonary embolus. D/ / 08/29/2016 13:04:09 Dio Meyer MD / marija Interpreting Provider: Dio Meyer MD Consult Discharge Plan - Plan Referrals: Gilbert Keen [Primary Care Provider] - 09/08/16 1:20 pm (please follow up as schedule...)
[2016-08-30] MEDS: amLODIPine 5 MG TABLET PO SCH (11:55)
[2016-08-31] MEDS: Insulin LISPRO 300 UNITS/3 ML VIAL SQ SCH ×4 (07:15→22:03)
[2016-08-31] MEDS: Magnesium Oxide 400 MG TABLET PO SCH ×2 (07:41→20:15)
[2016-08-31] MEDS: amLODIPine 5 MG TABLET PO SCH (07:41)
[2016-08-31] MEDS: Aspirin 81 MG TAB.CHEW PO SCH (07:42)
[2016-08-31] MEDS: Metoprolol XL (24 HR) Succ 50 MG TAB.ER.24H PO SCH (07:42)
[2016-08-31 08:41] LABS: Basophils % 0.4 %; Eosinophils % 0.9 %; Immature Granulocytes % 0.4 % (0-4); Lymphocytes % 18.3 %; Mean Corpuscular HGB Conc 34.3 g/dL (31.6-35.5); Mean Corpuscular Hemoglobin 28.1 pg (28.0-33.3); Mean Platelet Volume 10.5 fL (9.4-12.4); Monocytes % 7.8 %; Platelet Count 198 K/mcL (140-400); Red Blood Count 4.27 M/mcL (3.82-4.97); Red Cell Distribution Width 13.6 % (11.5-14.5); Segmented Neutrophils % 72.2 %
[2016-08-31 08:42] LABS: Eosinophils # 0.1 K/mcL (0.0-0.6); Monocytes # 0.4 K/mcL (0.0-1.3); Neutrophils # 4.1 K/mcL (1.6-8.9)
[2016-08-31 08:55] LABS: BUN/Creatinine Ratio 9 (6-26); Blood Urea Nitrogen 8 mg/dL (7-20); Carbon Dioxide 25 mEq/L (19-29); Chloride 98 mEq/L (98-109); Glucose 197 mg/dL (70-99); Osmolality,Calculated 288 (280-300); Potassium 3.6 mEq/L (3.5-4.5); Sodium 137 mEq/L (136-145); eGFR For African Americans > 60 (> 60); eGFR For Non-African Americans > 60 (> 60)
--- NOTE | 2016-08-31 11:38 | Internal Med Progress Note ---
Date of Encounter: 08/31/16 Time of Encounter: 11:36 - Assessment and plan (1) Syncope Current Visit: Yes Status: Acute Assessment and plan: unclear etiology. in the setting of syncope with elevated trop, isolated Rv dilatation and hypokinesis on the ECHO, was worked up for PE. V/Q shows low prob, b/l doppler is negative for DVT, does not have chest pain or sob. have stopped the heparin drip, less likely PE. may be 2/2 polypharmacy / opioid overdose as she was brought back with narcan as per [facility] chart. cardio was consulted, as per cardio ,the trop elevation 2/2 GABRIELA and RV changes of unclear significance at this time and will not do any further invasive testing. BP stable, EKG with no ischemic changes. will consult PT/OT for any rehab needs, await recommendations Qualifiers: Syncope type: unspecified Qualified Code(s): R55 - Syncope and collapse (2) Elevated troponin I level Current Visit: No Status: Acute Assessment and plan: in the setting of GABRIELA . No ischemic changes on the EKG. ruled out PE (3) UTI (urinary tract infection) Current Visit: Yes Status: Suspected Assessment and plan: Has no leukocytosis or fever. Hemodynamically stable. Does not complain of urinary symptoms at this time. urine cx done at [place] growing klebsiella and proteus and both is sensitive to ceftriaxone. will continue ceftriaxone for now, will dc on levoflox. Qualifiers: Urinary tract infection type: acute cystitis Hematuria presence: without hematuria Qualified Code(s): N30.00 - Acute cystitis without hematuria (4) Diabetes Current Visit: Yes Status: Acute Qualifiers: Diabetes mellitus type: other specified (including CAMMY) Diabetes mellitus complication status: with neurologic complications Diabetes mellitus complication detail: with autonomic neuropathy Diabetes mellitus rn long term care insulin use: unspecified assisted insulin use status Qualified Code(s): E13.43 - 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 (5) HTN (hypertension) Current Visit: Yes Status: Acute Assessment and plan: lisinopril - HCTZ was held due to worsening GABRIELA. amlodipine started yesterday, BP still elevated. patito start losartan. Qualifiers: Hypertension type: essential hypertension Qualified Code(s): I10 - Essential (primary) hypertension (6) GABRIELA (acute kidney injury) Current Visit: Yes Status: Acute Assessment and plan: imporvement in renal fxn today she is not aware of CKD in the past. renal US does not show any hydronephrosis. - Time Spent With Patient 25 - 35 minutes - Subjective Interval history: ramakrishna seen at the bedside, she denies any chest pain, sob, dizziness, cough, leg swelling or pain. as per the chart, she presented with syncope. seh was worked up for possible PE, V/Q shows low probability , b/l LE dopplers is negative for DVT. has h/o recurrent falls, daughter at home requesting HH, await PT/OT recommendations. - Constitutional Vitals: Temp Pulse Resp BP Pulse Ox 98.2 F 71 13 175/79 93 08/31/16 11:18 08/31/16 11:18 08/31/16 11:18 08/31/16 11:18 08/31/16 11:18 General appearance: Present: disheveled, A&O X 2, no acute distress Exam: neck- supple chest- b/l clear, no added sounds CVS-s1 and s2, regular , no m/r/g abd-soft, non tender, bs are present ext- no calf tenderness, no edema Internal Medicine: Result - Labs CBC & Chem 7: 08/31/16 08:30 08/31/16 08:30 Labs: Short CBC 08/31/16 Range/Units 08:30 WBC 5.7 (4.3-11.1) K/mcL Hgb 12.0 (11.5-15.4) g/dL Hct 35.0 L (35.3-44.9) % Plt Count 198 (140-400) K/mcL Neutrophils # 4.1 (1.6-8.9) K/mcL BMP 08/31/16 08:30 Sodium 137 Potassium 3.6 Chloride 98 Carbon Dioxide 25 BUN 8 Creatinine 0.91 Glucose 197 H Calcium 10.0 - ABG Interpretation ABG results: PT/INR, D-dimer PT 13.2 Seconds (9.4-12.1) H 08/29/16 01:03 Consult Discharge Plan - Plan Referrals: Gilbert Keen [Primary Care Provider] - 09/08/16 1:20 pm (please follow up as schedule...)
[2016-09-01] MEDS: Insulin LISPRO 300 UNITS/3 ML VIAL SQ SCH ×2 (09:15→11:54)
[2016-09-01] MEDS: Aspirin 81 MG TAB.CHEW PO SCH (09:23)
[2016-09-01] MEDS: amLODIPine 5 MG TABLET PO SCH (09:23)
[2016-09-01] MEDS: Metoprolol XL (24 HR) Succ 50 MG TAB.ER.24H PO SCH (09:23)
[2016-09-01] MEDS: Magnesium Oxide 400 MG TABLET PO SCH (09:23)
[2016-09-01] MEDS ORDERED: *HR* OxyCODONE/APAP 5/325 TABLET PO PRN (11:07)
[2016-09-01 11:19] VITALS: BP 169/77
--- NOTE | 2016-09-01 12:57 | Venous Imaging Report ---
LE Venous Duplex Patient Name:MICHEAL RUIZ Order Number:[id number] Procedure Date:08/29/2016 Date:6Age:71 yrs Gender:Female Location:[facility] Room #: [id number] Ramp Supervisor:Bridget Alan Referring MD:Benedicto Becker MD six pack packer:Gilbert Keen MD Reading MD:Suman Elizabeth MD , FACS Primary Indications:r/o DVT Secondary Indications: Impressions: Bilateral lower extremity: normal superficial and deep exam. Findings Prior Study: No prior study available for comparison. Lower Extremity Venous Duplex Side Vein Compress Spontaneous Flow Augment Diameter (cm) Depth (cm) Right Lesser Saphenous Normal Yes Phasic Yes Left Distal Iliac Normal Yes Phasic Yes Left Common Femoral Normal Yes Phasic Yes Left Superficial Femoral Normal Yes Phasic Yes Left Popliteal Normal Yes Phasic Yes Left Posterior Tibial Normal Yes Phasic Yes Left Peroneal Normal Yes Phasic Yes Left Saphenofemoral Junction Normal Yes Phasic Yes Left Great Saphenous Normal Yes Phasic Yes Left Lesser Saphenous Normal Yes Phasic Yes Right Distal Iliac Normal Yes Phasic Yes Right Common Femoral Normal Yes Phasic Yes Right Superficial Femoral Normal Yes Phasic Yes Right Popliteal Normal Yes Phasic Yes Right Posterior Tibial Normal Yes Phasic Yes Right Peroneal Normal Yes Phasic Yes Right Saphenofemoral Junction Normal Yes Phasic Yes Right Great Saphenous Normal Yes Phasic Yes Updated by Suman Elizabeth MD, FACS on 09/01/2016 12:52:18 PM Suman Elizabeth MD electronically signed on 09/01/2016 12:53:19 PM with status of Final
--- NOTE | 2016-09-01 13:14 | Discharge Summary ---
Date of Encounter: 09/01/16 Time of Encounter: 13:12 - Discharge Diagnosis (1) Syncope Priority: Primary Status: Acute Qualifiers: Syncope type: unspecified Qualified Code(s): R55 - Syncope and collapse (2) Elevated troponin I level Priority: Secondary Status: Acute (3) UTI (urinary tract infection) Priority: Primary Status: Suspected Qualifiers: Urinary tract infection type: acute cystitis Hematuria presence: without hematuria Qualified Code(s): N30.00 - Acute cystitis without hematuria (4) Diabetes Priority: Secondary Status: Acute Qualifiers: Diabetes mellitus type: other specified (including CAMMY) Diabetes mellitus complication status: with neurologic complications Diabetes mellitus complication detail: with autonomic neuropathy Diabetes mellitus jail insulin use: unspecified terminal manager insulin use status Qualified Code(s): E13.43 - 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 (5) HTN (hypertension) Priority: Secondary Status: Acute Qualifiers: Hypertension type: essential hypertension Qualified Code(s): I10 - Essential (primary) hypertension (6) GABRIELA (acute kidney injury) Priority: Secondary Status: Acute - Discharge Medications Prescriptions: Amlodipine [Norvasc] 10 mg PO DAILY #60 tablet Losartan [Cozaar] 50 mg PO DAILY #60 tablet Home Medications: Albuterol Sulfate [Albuterol Inhaler] 2 puff IH Q6H 08/28/16 [History] ClonazePAM [Klonopin] 1 mg PO BID 08/28/16 [History] GlipiZIDE [Glipizide Xl] 5 mg PO DAILY 08/28/16 [History] Metformin HCl [Metformin HCl ER] 2,000 mg PO HS 08/28/16 [History] Metoprolol Succinate 100 mg PO DAILY 08/28/16 [History] Omeprazole [PriLOSEC] 40 mg PO DAILY 08/28/16 [History] OxyCODONE/APAP 5/325 [Percocet 5/325 MG] 1 each PO Q4HR PRN 08/28/16 [History] Potassium Chloride [K-Tab ER] 40 meq PO BID 08/28/16 [History] Simvastatin [Zocor] 40 mg PO HS 08/28/16 [History] Duloxetine HCl [Cymbalta] 60 mg PO DAILY 08/29/16 [History] Amlodipine [Norvasc] 10 mg PO DAILY #60 tablet 09/01/16 [Rx] Losartan [Cozaar] 50 mg PO DAILY #60 tablet 09/01/16 [Rx] Allergies/Adverse Reactions: Allergies guaifenesin [From Mucinex] Allergy (Verified 10/05/15 18:49) Difficulty Breathing gabapentin [From Neurontin] Adverse Reaction (Verified 10/05/15 18:49) See Comments pregabalin [From Lyrica] Adverse Reaction (Verified 10/05/15 18:49) See Comments promethazine [From Phenergan] Adverse Reaction (Verified 10/05/15 18:49) Vomiting Date of admission: 08/29/16 06:09 Primary care physician: Gilbert Keen Consults: 08/28/16 21:33 Consult to Nutrition [CONS] Routine Comment: Consulting Provider: NUTRITION Reason for Dietary Consult: Other Other:: approx 20 lbs wt loss Consult to Pastoral Services [CONS] Routine Comment: Consult to Winding Inspector [CONS] Routine Reason for SW Consult: lives at home with 50 yr old daughter assists with her care/care for each other. Daughter has cancer recieves home health. 08/29/16 07:00 Consult to Cardiology [CONS] Routine Comment: Consulting Provider: Cardiology Ade Reason for Consult: Elevated trops, syncope, hyperkalemia Call Completed: No 08/30/16 07:38 Consult to Physical Therapy [CONS] Routine Comment: Evaluate, develop and implement POC 08/30/16 07:39 Consult to Occupational Therapy [CONS] Routine Comment: Evaluate, develop and implement POC Discharging clinician: Ingrid Becker Anticipated date of discharge: 09/01/16 - Patient Status Disposition: Home Health Service Condition: Fair Functional capacity at discharge: independent ambulation Overall status at discharge: patient is back to baseline - Discharge Instructions Instructions: Diabetes Mellitus Type 2 in Adults (DC), Sepsis (DC) Follow Up With: Chapo Cabrales CNP [Advanced Practice Nurse] - 09/17/16 9:00 am (Please follow up as schedule and ic [email or web address]. Thanks) Gilbert Keen [Primary Care Provider] - 09/08/16 1:20 pm (please follow up as schedule...) - Diet and Activity Activity: resume usual activities as tolerated Diet: advance to your usual diet Interval History: Ms. Monson is a 71 year old female with PMHx HTN, HLD,depression, TIA, DM, chronic back pain who presented with syncope. she was admitted for further management. seh had mildly elevated trop on presentation which was adynamic, however she denied any chest pain or sob. she was initially started on heparin drip. ECHO showed isolated Rv dilatation and hypokinesis on the ECHO, hence was worked up for PE. V/Q shows low prob, b/l doppler is negative for DVT, does not have chest pain or sob. have stopped the heparin drip, less likely PE. may be 2/2 polypharmacy / opioid overdose as she was brought back with narcan as per the chart. cardio was consulted, as per cardio ,the trop elevation 2/2 GABRIELA and RV changes of unclear significance at this time and will not do any further invasive testing. BP stable, EKG with no ischemic changes. PT/OT was consulted however she refuses to go to ECF and would like to go home. given recurrent falls at home, will arrange for medication supervision, PT and nursing. she is being dc in stable condition. Hospital course: Ms. Monson is a 71 year old female Time spent discussing smoking cessation with patient: more than 10 minutes - Time Spent with Patient Total time spent providing and/or coordinating discharge services: Greater than 30 minutes - Constitutional Vitals: Temp Pulse Resp BP Pulse Ox 98.4 F 83 16 169/77 96 09/01/16 11:15 09/01/16 11:15 09/01/16 11:15 09/01/16 11:15 09/01/16 11:15 General appearance: Present: disheveled, A&O X 2, no acute distress Exam: - Head Head exam: Present: atraumatic, normocephalic - Eye Eye exam: Present: PERRL, conjuntiva pink, sclera anicteric Pupils: Present: PERRL - Neck Neck exam general surgery: Present: supple, trachea midline. Absent: lymphadenopathy - Respiratory Respiratory exam: Present: CTAB. Absent: accessory muscle use, rales, rhonchi, wheezes - Cardiovascular Cardiovascular exam: Present: RRR, +S1, +S2. Absent: diastolic murmur, gallop, rubs, systolic murmur - GI/Abdominal GI/Abdominal exam: Present: normal bowel sounds, soft, no peritoneal signs. Absent: distended, tenderness - Extremities Exam Extremities exam: Present: warm, radial pulses palpable and symetrical. Absent : calf tenderness, cyanotic, pedal edema - Neurological Exam Neurological exam: Present: CN II-XII intact, oriented X3, no focal deficits, strengths equal and symetr throughout. Absent: pronater drift, facial droop, speech deficit - Skin Skin exam: Present: dry, intact, normal color. Absent: cyanosis, diaphoretic
--- NOTE | 2016-09-01 14:50 | Physician Discharge Referral ---
Home Health/Hosp Referral Info Transfer to: Home Health Attending Provider: katalina lamar - Diagnosis (1) Syncope Status: Acute (2) Elevated troponin I level Status: Acute (3) UTI (urinary tract infection) Status: Suspected (4) Diabetes Status: Acute (5) HTN (hypertension) Status: Acute (6) GABRIELA (acute kidney injury) Status: Acute - Respiratory Orders Smoking Cessation: Smoking cessation has been advised. For more information, call the [employer] Tobacco Quit Line at 4-788-SWQC-NOW. - Diet/Nutrition Diet/Nutrition Orders: Regular - Activity Activity Orders: Ambulate, Chair - Services Needed Following services are medically necessary services: Nursing, Home Health Aide, Physical Therapy, Occupational Therapy - Transfer Medications Prescriptions: Amlodipine [Norvasc] 10 mg PO DAILY #60 tablet Losartan [Cozaar] 50 mg PO DAILY #60 tablet Home Medications: Albuterol Sulfate [Albuterol Inhaler] 2 puff IH Q6H 08/28/16 [History] ClonazePAM [Klonopin] 1 mg PO BID 08/28/16 [History] GlipiZIDE [Glipizide Xl] 5 mg PO DAILY 08/28/16 [History] Metformin HCl [Metformin HCl ER] 2,000 mg PO HS 08/28/16 [History] Metoprolol Succinate 100 mg PO DAILY 08/28/16 [History] Omeprazole [PriLOSEC] 40 mg PO DAILY 08/28/16 [History] OxyCODONE/APAP 5/325 [Percocet 5/325 MG] 1 each PO Q4HR PRN 08/28/16 [History] Potassium Chloride [K-Tab ER] 40 meq PO BID 08/28/16 [History] Simvastatin [Zocor] 40 mg PO HS 08/28/16 [History] Duloxetine HCl [Cymbalta] 60 mg PO DAILY 08/29/16 [History] Amlodipine [Norvasc] 10 mg PO DAILY #60 tablet 09/01/16 [Rx] Losartan [Cozaar] 50 mg PO DAILY #60 tablet 09/01/16 [Rx] Allergies/Adverse Reactions: Allergies guaifenesin [From Mucinex] Allergy (Verified 10/05/15 18:49) Difficulty Breathing gabapentin [From Neurontin] Adverse Reaction (Verified 10/05/15 18:49) See Comments pregabalin [From Lyrica] Adverse Reaction (Verified 10/05/15 18:49) See Comments promethazine [From Phenergan] Adverse Reaction (Verified 10/05/15 18:49) Vomiting Certification: Further, I certify that my clinical findings support that this patient is homebound (i.e. absences from home require considerable and taxing effort and are for medical reasons or yarsanism services or infrequently or short duration when for other reasons) because: Homebound Reason: Patient requires assistance of a person or device to safely leave home Attestation: My signature below is to certify that this patient is under my care and that I, or nurse practitioner, or a physician's assistant property manager working with me, has a face-to -face encounter with this patient.
[2016-09-01] MEDS ORDERED: *HR* Heparin 5,000 UNIT/ML VIAL SQ SCH (18:00)
== END 2016-09-01 15:13 | disposition home health service (06) | DRG 689 ==
LOC: 2ANU
PROVIDERS: ADMIT Internal Medicine; ATTEND Internal Medicine Endocrinology, Diabetes & Metabolism